=== PATIENT | female | born 1965 | race Caucasian/White ===

== ENCOUNTER → 2016-10-12 | Outpatient (CLI) | payer MEDICAID ==
--- NOTE | 2016-10-12 08:55 | US ---
EXAMINATION TYPE: US transvaginal DATE OF EXAM: 10/12/2016 8:29 AM COMPARISON: NONE CLINICAL HISTORY: Previous R Ovarian Cyst N83.20, D25.9. Pt states history of ovarian cysts seen on p revious scans at outside facility TECHNIQUE: Transvaginal (TV) Date of LMP: December 2015 EXAM MEASUREMENTS: Uterus: 8.8 x 3.8 x 5.5 cm Endometrial Stripe: 0.8 cm Right Ovary: 2.4 x 1.7 x 2.1 cm Left Ovary: 2.2 x 1.5 x 2.0 cm 1. Uterus: Anteverted Heterogeneous with two fibroids visible, 1) Anterior= 1.7 x 1.2 x 2.1 cm/ 2)Posterior= 3.2 x 2.4 x 3.5 cm 2. Endometrium: wnl 3. Right Ovary: wnl, no evidence of cysts 4. Left Ovary: wnl, no evidence of cysts 5. Bilateral Adnexa: wnl 6. Posterior cul-de-sac: wnl IMPRESSION: 1. Probable leiomyomatous change of the uterus.
== END | disposition home or self-care (01) ==
LOC: RADUSWWP 08:11 → MERGE 08:20
PROVIDERS: ATTEND Obstetrics & Gynecology
DX: D25.9 Leiomyoma of uterus, unspecified (principal)
CPT/HCPCS: 76830

== ENCOUNTER → 2018-02-12 | Outpatient (CLI) | payer MEDICAID ==
--- NOTE | 2018-02-12 15:16 | MM ---
Reason for exam: screening (asymptomatic). Last mammogram was performed 2 years and 4 months ago. History: Family history of breast cancer in mother at age 87. Took hormonal contraceptives for 1 year 6 months. Physical Findings: A clinical breast exam by your physician is recommended on an annual basis and results should be correlated with mammographic findings. MG 3D Screening Mammo W/Cad Bilateral CC and MLO view(s) were taken. Prior study comparison: October 28, 2015, bilateral MG 3d screening mammo w/cad. June 03, 2014, bilateral MG screening mammo w CAD. The breast tissue is heterogeneously dense. This may lower the sensitivity of mammography. There is no discrete abnormality. No significant changes when compared with prior studies. ASSESSMENT: Negative, BI-RAD 1 RECOMMENDATION: Routine screening mammogram of both breasts in 1 year.
== END | disposition home or self-care (01) ==
LOC: RADMAMWWP 08:41
PROVIDERS: ATTEND Obstetrics & Gynecology
DX: Z12.31 Encounter for screening mammogram for malignant neoplasm of breast (principal); Z80.3 Family history of malignant neoplasm of breast
CPT/HCPCS: 77063; 77067

== ENCOUNTER 2019-01-09 06:39 | Day surgery (SDC) | payer MEDICAID ==
[2019-01-07 10:30] VITALS: BMI 25.7
[~2019-01-09 06:39] MED LIST: LACTATED RINGERS 1,000 ML IV SCH
[2019-01-09 07:01] VITALS: RESP 16; TEMP 97.4
[2019-01-09] MEDS ORDERED: PROPOFOL 10 MG/ML 20 ML VIAL IV ONE (07:15)
--- NOTE | 2019-01-09 08:02 | P.OP ---
Date of Procedure: 01/09/19 Preoperative Diagnosis: Screening Postoperative Diagnosis: Ascending colon polyp Procedure(s) Performed: Colonoscopy with snare polypectomy Surgeon: Alex Pak Pathology: other (Ascending colon polyp) Condition: stable Disposition: same day Indications for Procedure: 53-year-old female presents for screening colonoscopy. She has never had colonoscopy previously. She was explained the risks, benefits and alternatives prior to attending the endoscopy suite. Operative Findings: Large, flat and sessile ascending colon polyp Description of Procedure: The patient was brought into the endoscopy suite and placed in left lateral decubitus position. Adequate sedation was achieved using conscious sedation. A digital rectal exam was performed and mild internal hemorrhoids were palpated. An endoscope was then placed in the rectum and advanced to the level of the cecum as identified by landmarks, including the appendiceal orifice and the ileocecal valve. The prep was good. The colonoscope was then slowly withdrawn, examining for any mucosal abnormalities. The cecum, ascending, transverse, descending and sigmoid colon were visualized adequately. There was a flat, large and sessile polyp noted in the ascending colon. Multiple attempts at snare polypectomy were performed to remove this polyp in its entirety. There were no additional inflammatory lesions about the colon. There were no neoplastic lesions seen throughout the colon. There was no obvious div erticulosis throughout the colon. Retroflexion was performed in the rectum and internal hemorrhoids were visible. Excess air was removed. The colonoscope was withdrawn and the procedure terminated. The patient was then transferred to the postanesthesia care unit in stable condition. Repeat colonoscopy should be performed in 5 years.
[2019-01-09 08:29] VITALS: BP 132/74; PULSE 66
== END 2019-01-09 08:39 | disposition home or self-care (01) ==
LOC: ORWHC2ENDO 06:39
PROVIDERS: ATTEND Surgery
DX: Z12.11 Encounter for screening for malignant neoplasm of colon (principal); K64.8 Other hemorrhoids; K63.5 Polyp of colon; F17.210 Nicotine dependence, cigarettes, uncomplicated
CPT/HCPCS: 81025; 88305; 45385; J2704; 45380

== ENCOUNTER → 2019-07-14 | Outpatient (CLI) | payer MEDICAID ==
--- NOTE | 2019-07-15 08:26 | MM ---
Reason for exam: screening (asymptomatic). Last mammogram was performed 1 year and 5 months ago. History: Family history of breast cancer in mother at age 87. Took hormonal contraceptives for 1 year 6 months. Physical Findings: A clinical breast exam by your physician is recommended on an annual basis and results should be correlated with mammographic findings. MG 3D Screening Mammo W/Cad Bilateral CC and MLO view(s) were taken. Prior study comparison: February 12, 2018, bilateral MG 3d screening mammo w/cad. October 28, 2015, bilateral MG 3d screening mammo w/cad. There are scattered fibroglandular densities. Stable right upper outer quadrant global asymmetry. No significant changes when compared with prior studies. ASSESSMENT: Negative, BI-RAD 1 RECOMMENDATION: Routine screening mammogram of both breasts in 1 year.
== END | disposition home or self-care (01) ==
LOC: RADMAMWWP 07:26
PROVIDERS: ATTEND Family Medicine
DX: Z12.31 Encounter for screening mammogram for malignant neoplasm of breast (principal)
CPT/HCPCS: 77063; 77067

== ENCOUNTER → 2020-08-03 | Outpatient (CLI) | payer BC ==
--- NOTE | 2020-08-04 10:48 | MM ---
Reason for exam: screening (asymptomatic). Last mammogram was performed 1 year and 1 month ago. History: Patient is postmenopausal. Family history of breast cancer in mother at age 87. Took hormonal contraceptives for 1 year 6 months. Physical Findings: A clinical breast exam by your physician is recommended on an annual basis and results should be correlated with mammographic findings. MG 3D Screening Mammo W/Cad Bilateral CC and MLO view(s) were taken. XCCL view(s) were taken of the left breast. Prior study comparison: July 14, 2019, bilateral MG 3d screening mammo w/cad. February 12, 2018, bilateral MG 3d screening mammo w/cad. There are scattered fibroglandular densities. There is chronic nodularity in the left breast. Asymmetric breast tissue left breast, stable. There is no discrete abnormality. ASSESSMENT: Benign, BI-RAD 2 RECOMMENDATION: Routine screening mammogram of both breasts in 1 year.
== END | disposition home or self-care (01) ==
LOC: RADMAMWWP 15:24
PROVIDERS: ATTEND Family Medicine
DX: Z12.31 Encounter for screening mammogram for malignant neoplasm of breast (principal)
CPT/HCPCS: 77063; 77067